=== PATIENT | female | born 1970 | race Caucasian/White ===

== ENCOUNTER 2021-08-25 09:19 | Inpatient (IN) ==
[2021-08-25] MEDS ORDERED: ALBUTEROL 2.5 MG/3 ML NEB RESP TX STA ×2 (09:41→12:21)
[2021-08-25] MEDS ORDERED: PANTOPRAZOLE 40 MG VIAL IV STA (09:41)
[2021-08-25] MEDS ORDERED: metroNIDAZOLE INJ 500 MG/100 ML PREMIX IV STA (09:42)
[2021-08-25] MEDS ORDERED: ONDANSETRON 4 MG/2 ML VIAL IV ONE (09:42)
[2021-08-25] MEDS ORDERED: methylPREDNISolone SOD SUC 125 MG/2 ML VIAL IV STA (09:45)
[2021-08-25 10:21] LABS: Basophils % 0.5 % (0.0-0.8); Eosinophils # 0.1 10*3/uL (0.0-0.87); Eosinophils % 0.9 % (0.00-10.9); Hematocrit 41.2 VOL% (35.7-47.0); Hemoglobin 12.9 GM/DL (12.0-16.0); Immature Granulocytes % 0.7 %; Immature Granulocytes Absolute 0.06 #; Lymphocytes # 2.1 10*3/uL (1.4-4.0); Lymphocytes % 23.7 % (21.3-54.2); Mean Corpuscular HGB Conc 31.3 GM/DL (32-36); Mean Corpuscular Volume 92.8 FL (87-102); Mean Platelet Volume 10.5 FL (9.6-12.0); Monocytes # 0.3 10*3/uL (0.11-0.8); Monocytes % 3.6 % (1.7-12.7); Neutrophils % 70.6 % (38.7-73.9); Platelet Count 177 T/CUMM (130-400); Red Blood Count 4.44 MC/CUMM (3.8-5.5); Red Cell Distribution Width 13.1 % (9.3-17.3); White Blood Count 8.7 T/CUMM (4-12)
[2021-08-25 10:37] LABS: Alanine Aminotransferase 53 U/L (13-56); Alkaline Phosphatase 103 U/L (45-117); Aspartate Amino Transferase 36 U/L (0-37); Bilirubin,Total < 0.39 MG/DL (0.20-1.00); Blood Urea Nitrogen 10 MG/DL (7-18); Calcium 8.3 MG/DL (8.5-10.1); Carbon Dioxide 30 MMOL/L (21-32); Chloride 105 MMOL/L (98-107); Estimated Glom Filtration Rate 140 ML/MIN; Glucose 166 MG/DL (74-106); Osmolality,Calculated 283.3 MOS/KG (273-304); Potassium 3.4 MMOL/L (3.5-5.1); Sodium 141 MMOL/L (136-145); Total Protein 7.7 G/DL (6.4-8.2)
[2021-08-25] MEDS ORDERED: LORazepam 2 MG/1 ML VIAL IV STA (12:22)
[2021-08-25 12:49] LABS: Arterial Base Excess iSTAT -1 MMOL/L (-2.5-2.5); Arterial Bicarbonate iSTAT 29.6 MMOL/L (20-26); Arterial O2 Saturation iSTAT 97 % (95-100); Arterial PCO2 iSTAT 77 MM HG (35-48); Arterial PO2 iSTAT 114 MM HG (80-95); Arterial Total CO2 iSTAT 32 MMO/L (23-27); Arterial pH iSTAT 7.192 (7.35-7.45)
[2021-08-25] MEDS ORDERED: ONDANSETRON 4 MG/2 ML VIAL IV PRN (12:58)
[2021-08-25] MEDS ORDERED: ALBUTEROL/IPRATROPIUM 3 ML NEB RESP TX PRN (12:58)
[2021-08-25] MEDS ORDERED: LACTATED RINGERS 1,000 ML IV SCH (13:00)
[2021-08-25] MEDS ORDERED: cefTRIAXone 1,000 MG VIAL IV SCH (13:30)
[2021-08-25] MEDS: ENOXAPARIN 40 MG/0.4 ML SYRINGE SUBCUT SCH (13:50)
[2021-08-25] MEDS: cefTRIAXone 1,000 MG in SODIUM CHLORIDE 0.9% 100 ML IV SCH (13:50)
[2021-08-25] MEDS: ALBUTEROL/IPRATROPIUM 3 ML NEB RESP TX SCH ×2 (13:52→19:25)
[2021-08-25] MEDS: CLINDAMYCIN INJ 600 MG/50 ML PREMIX IV SCH ×2 (14:04→21:11)
[2021-08-25] MEDS ORDERED: ALPRAZolam 0.5 MG TABLET PO PRN (14:33)
[2021-08-25] MEDS ORDERED: ALPRAZolam 0.5 MG TABLET PO ONE (14:33)
[2021-08-25 15:52] LABS: Arterial Base Excess iSTAT 0 MMOL/L (-2.5-2.5); Arterial Bicarbonate iSTAT 30.2 MMOL/L (20-26); Arterial O2 Saturation iSTAT 97 % (95-100); Arterial PCO2 iSTAT 75 MM HG (35-48); Arterial PO2 iSTAT 120 MM HG (80-95); Arterial Total CO2 iSTAT 32 MMO/L (23-27); Arterial pH iSTAT 7.214 (7.35-7.45)
[2021-08-25 17:58] LABS: Arterial Base Excess iSTAT 2 MMOL/L (-2.5-2.5); Arterial Bicarbonate iSTAT 30.2 MMOL/L (20-26); Arterial O2 Saturation iSTAT 97 % (95-100); Arterial PCO2 iSTAT 65 MM HG (35-48); Arterial PO2 iSTAT 111 MM HG (80-95); Arterial Total CO2 iSTAT 32 MMO/L (23-27); Arterial pH iSTAT 7.274 (7.35-7.45)
[2021-08-25] MEDS: LACTATED RINGERS 1,000 ML IV SCH (18:10)
[2021-08-25] MEDS: methylPREDNISolone SOD SUC 40 MG/1 ML VIAL IV SCH (18:28)
[2021-08-25] MEDS: ACETAMINOPHEN 325 MG TABLET PO PRN (18:33)
[2021-08-26] MEDS: ALBUTEROL/IPRATROPIUM 3 ML NEB RESP TX SCH ×4 (00:10→19:16)
[2021-08-26] MEDS ORDERED: ALPRAZolam 0.5 MG TABLET PO ONE (01:50)
[2021-08-26] MEDS: methylPREDNISolone SOD SUC 40 MG/1 ML VIAL IV SCH ×3 (02:39→18:50)
[2021-08-26 04:35] LABS: Basophils % 0.2 % (0.0-0.8); Hematocrit 37.7 VOL% (35.7-47.0); Hemoglobin 11.9 GM/DL (12.0-16.0); Immature Granulocytes % 0.3 %; Immature Granulocytes Absolute 0.05 #; Lymphocytes # 0.6 10*3/uL (1.4-4.0); Lymphocytes % 4.3 % (21.3-54.2); Mean Corpuscular HGB Conc 31.6 GM/DL (32-36); Mean Corpuscular Volume 91.5 FL (87-102); Mean Platelet Volume 11.8 FL (9.6-12.0); Monocytes # 0.5 10*3/uL (0.11-0.8); Monocytes % 3.1 % (1.7-12.7); Neutrophils % 92.1 % (38.7-73.9); Platelet Count 122 T/CUMM (130-400); Red Blood Count 4.12 MC/CUMM (3.8-5.5); White Blood Count 14.8 T/CUMM (4-12)
[2021-08-26 04:49] LABS: Band Neutrophils 2 % (0-10); Lymphocytes 6 % (20-55); Nucleated Red Blood Cells 1 (0-5); Platelet Estimate Normal; Total Cells Counted 100
[2021-08-26 05:13] LABS: Alanine Aminotransferase 45 U/L (13-56); Albumin 3.6 G/DL (3.4-5.0); Alkaline Phosphatase 69 U/L (45-117); Aspartate Amino Transferase 36 U/L (0-37); Bilirubin,Total < 0.39 MG/DL (0.20-1.00); Blood Urea Nitrogen 12 MG/DL (7-18); Calcium 8.5 MG/DL (8.5-10.1); Carbon Dioxide 25 MMOL/L (21-32); Chloride 105 MMOL/L (98-107); Estimated Glom Filtration Rate 141 ML/MIN; Glucose 137 MG/DL (74-106); Osmolality,Calculated 276.7 MOS/KG (273-304); Potassium 4.3 MMOL/L (3.5-5.1); Sodium 138 MMOL/L (136-145); Total Protein 7.4 G/DL (6.4-8.2)
[2021-08-26] MEDS: CLINDAMYCIN INJ 600 MG/50 ML PREMIX IV SCH ×3 (05:58→22:12)
[2021-08-26] MEDS ORDERED: MAGNESIUM SULF RIDER 4 GM/100 ML PREMIX IV ONE (07:52)
[2021-08-26] MEDS ORDERED: PANTOPRAZOLE 40 MG VIAL IV SCH (09:00)
[2021-08-26] MEDS: ALPRAZolam 0.5 MG TABLET PO PRN ×3 (09:56→18:50)
[2021-08-26] MEDS: ACETAMINOPHEN 325 MG TABLET PO PRN ×3 (09:56→23:50)
[2021-08-26] MEDS: ENOXAPARIN 40 MG/0.4 ML SYRINGE SUBCUT SCH (14:00)
[2021-08-26] MEDS: cefTRIAXone 1,000 MG in SODIUM CHLORIDE 0.9% 100 ML IV SCH (14:00)
[2021-08-26] MEDS: LACTATED RINGERS 1,000 ML IV SCH (16:28)
[2021-08-26] MEDS: VENLAFAXINE XR 75 MG CAPSULE PO SCH (18:50)
[2021-08-26 19:26] LABS: ABG Base Excess 5.1 MMOL/L (-2.5-2.5); ABG Oxygen Saturation 97.5 % (95-100); ABG PH 7.366 (7.35-7.45); ABG PO2 94.3 MM HG (80-95); ABG TCO2 28.5 MMOL/L (23-27)
[2021-08-26] MEDS ORDERED: PANTOPRAZOLE 40 MG TABLET PO SCH (21:00)
[2021-08-26] MEDS: PANTOPRAZOLE 40 MG TABLET PO SCH (22:00)
[2021-08-26] MEDS: SUCRALFATE 1 GM TABLET PO SCH (22:00)
[2021-08-27] MEDS: ALBUTEROL/IPRATROPIUM 3 ML NEB RESP TX SCH ×4 (00:28→19:04)
[2021-08-27 03:53] LABS: Basophils % 0.1 % (0.0-0.8); Hematocrit 38.9 VOL% (35.7-47.0); Hemoglobin 12.2 GM/DL (12.0-16.0); Immature Granulocytes % 1.1 %; Immature Granulocytes Absolute 0.14 #; Lymphocytes # 0.7 10*3/uL (1.4-4.0); Lymphocytes % 5.1 % (21.3-54.2); Mean Corpuscular HGB Conc 31.4 GM/DL (32-36); Mean Corpuscular Volume 91.3 FL (87-102); Mean Platelet Volume 11.2 FL (9.6-12.0); Monocytes # 0.5 10*3/uL (0.11-0.8); Monocytes % 3.8 % (1.7-12.7); Neutrophils % 89.9 % (38.7-73.9); Platelet Count 170 T/CUMM (130-400); Red Blood Count 4.26 MC/CUMM (3.8-5.5); Red Cell Distribution Width 13.1 % (9.3-17.3); White Blood Count 13.1 T/CUMM (4-12)
[2021-08-27 04:11] LABS: Calcium 9.1 MG/DL (8.5-10.1); Potassium 4.3 MMOL/L (3.5-5.1)
[2021-08-27 04:37] LABS: Band Neutrophils 4 % (0-10); Lymphocytes 6 % (20-55); Microcytosis 1+; Ovalocytes Slight; Total Cells Counted 100
[2021-08-27 04:38] LABS: Hypochromia Slight; Platelet Estimate Adequate
[2021-08-27] MEDS: methylPREDNISolone SOD SUC 40 MG/1 ML VIAL IV SCH ×2 (05:50→18:00)
[2021-08-27] MEDS: CLINDAMYCIN INJ 600 MG/50 ML PREMIX IV SCH ×3 (05:50→21:21)
[2021-08-27] MEDS: LEVOTHYROXINE 150 MCG TABLET PO SCH (06:00)
[2021-08-27] MEDS: SUCRALFATE 1 GM TABLET PO SCH ×4 (09:30→21:21)
[2021-08-27] MEDS: PANTOPRAZOLE 40 MG TABLET PO SCH ×2 (09:30→21:21)
[2021-08-27] MEDS: VENLAFAXINE XR 75 MG CAPSULE PO SCH (09:30)
[2021-08-27] MEDS: ENOXAPARIN 40 MG/0.4 ML SYRINGE SUBCUT SCH (13:30)
[2021-08-27] MEDS: cefTRIAXone 1,000 MG in SODIUM CHLORIDE 0.9% 100 ML IV SCH (15:14)
[2021-08-27] MEDS: LACTATED RINGERS 1,000 ML IV SCH (15:15)
[2021-08-27] MEDS: ACETAMINOPHEN 325 MG TABLET PO PRN (16:14)
[2021-08-27] MEDS: ALPRAZolam 0.5 MG TABLET PO PRN (19:00)
[2021-08-27] MEDS: ROSUVASTATIN 10 MG TABLET PO SCH (21:21)
[2021-08-28] MEDS: ALBUTEROL/IPRATROPIUM 3 ML NEB RESP TX SCH ×4 (00:05→18:59)
[2021-08-28 04:29] LABS: Basophils % 0.1 % (0.0-0.8); Hematocrit 38.9 VOL% (35.7-47.0); Immature Granulocytes % 1.3 %; Immature Granulocytes Absolute 0.16 #; Lymphocytes # 1.1 10*3/uL (1.4-4.0); Lymphocytes % 9.2 % (21.3-54.2); Mean Corpuscular HGB Conc 30.8 GM/DL (32-36); Mean Corpuscular Volume 92.6 FL (87-102); Mean Platelet Volume 10.6 FL (9.6-12.0); Monocytes # 0.5 10*3/uL (0.11-0.8); Monocytes % 4.4 % (1.7-12.7); Platelet Count 180 T/CUMM (130-400); Red Cell Distribution Width 13.2 % (9.3-17.3); White Blood Count 11.9 T/CUMM (4-12)
[2021-08-28 05:27] LABS: Calcium 8.9 MG/DL (8.5-10.1); Osmolality,Calculated 283.3 MOS/KG (273-304)
[2021-08-28] MEDS: CLINDAMYCIN INJ 600 MG/50 ML PREMIX IV SCH (06:06)
[2021-08-28] MEDS: LACTATED RINGERS 1,000 ML IV SCH (06:06)
[2021-08-28] MEDS: LEVOTHYROXINE 150 MCG TABLET PO SCH (06:07)
[2021-08-28] MEDS: methylPREDNISolone SOD SUC 40 MG/1 ML VIAL IV SCH ×2 (06:07→20:22)
[2021-08-28] MEDS: VENLAFAXINE XR 75 MG CAPSULE PO SCH (09:15)
[2021-08-28] MEDS: PANTOPRAZOLE 40 MG TABLET PO SCH ×2 (09:15→20:20)
[2021-08-28] MEDS: SUCRALFATE 1 GM TABLET PO SCH ×2 (09:16→13:00)
[2021-08-28] MEDS: ACETAMINOPHEN 325 MG TABLET PO PRN (09:25)
[2021-08-28] MEDS: ENOXAPARIN 40 MG/0.4 ML SYRINGE SUBCUT SCH (14:03)
[2021-08-28] MEDS: CLINDAMYCIN 300 MG CAPSULE PO SCH ×2 (15:47→20:20)
[2021-08-28] MEDS: METOCLOPRAMIDE 10 MG/10 ML UDCUP PO SCH ×2 (15:49→20:20)
[2021-08-28] MEDS: ROSUVASTATIN 10 MG TABLET PO SCH (20:20)
[2021-08-29] MEDS: ALBUTEROL/IPRATROPIUM 3 ML NEB RESP TX SCH ×4 (00:12→19:30)
[2021-08-29 04:27] LABS: Basophils % 0.2 % (0.0-0.8); Hematocrit 37.6 VOL% (35.7-47.0); Immature Granulocytes % 0.7 %; Immature Granulocytes Absolute 0.08 #; Lymphocytes # 1.6 10*3/uL (1.4-4.0); Mean Corpuscular HGB Conc 31.9 GM/DL (32-36); Mean Platelet Volume 10.5 FL (9.6-12.0); Monocytes # 0.4 10*3/uL (0.11-0.8); Neutrophils % 80.1 % (38.7-73.9); Platelet Count 186 T/CUMM (130-400); Red Blood Count 4.13 MC/CUMM (3.8-5.5); Red Cell Distribution Width 13.1 % (9.3-17.3); White Blood Count 10.8 T/CUMM (4-12)
[2021-08-29 04:42] LABS: Calcium 8.7 MG/DL (8.5-10.1); Osmolality,Calculated 284.3 MOS/KG (273-304)
[2021-08-29] MEDS: LEVOTHYROXINE 150 MCG TABLET PO SCH (06:17)
[2021-08-29] MEDS: ACETAMINOPHEN 325 MG TABLET PO PRN (07:42)
[2021-08-29] MEDS: METOCLOPRAMIDE 10 MG/10 ML UDCUP PO SCH ×4 (07:42→20:48)
[2021-08-29] MEDS: methylPREDNISolone SOD SUC 40 MG/1 ML VIAL IV SCH ×2 (07:43→20:43)
[2021-08-29] MEDS: PANTOPRAZOLE 40 MG TABLET PO SCH ×2 (08:21→20:41)
[2021-08-29] MEDS: VENLAFAXINE XR 75 MG CAPSULE PO SCH (08:21)
[2021-08-29] MEDS: CLINDAMYCIN 300 MG CAPSULE PO SCH ×3 (08:21→20:41)
[2021-08-29] MEDS: ENOXAPARIN 40 MG/0.4 ML SYRINGE SUBCUT SCH (13:54)
[2021-08-29] MEDS: ROSUVASTATIN 10 MG TABLET PO SCH (20:42)
[2021-08-30] MEDS: ALBUTEROL/IPRATROPIUM 3 ML NEB RESP TX SCH ×2 (00:35→07:51)
[2021-08-30 04:17] LABS: Calcium 9.2 MG/DL (8.5-10.1); Osmolality,Calculated 285.3 MOS/KG (273-304); Potassium 3.9 MMOL/L (3.5-5.1)
[2021-08-30] MEDS: LEVOTHYROXINE 150 MCG TABLET PO SCH (06:37)
[2021-08-30] MEDS: PANTOPRAZOLE 40 MG TABLET PO SCH (08:45)
[2021-08-30] MEDS: CLINDAMYCIN 300 MG CAPSULE PO SCH (08:45)
[2021-08-30] MEDS: METOCLOPRAMIDE 10 MG/10 ML UDCUP PO SCH ×2 (08:45→11:40)
[2021-08-30] MEDS: VENLAFAXINE XR 75 MG CAPSULE PO SCH (08:45)
[2021-08-30] MEDS: methylPREDNISolone SOD SUC 40 MG/1 ML VIAL IV SCH (08:50)
[2021-08-30 12:28] VITALS: BP 150/95
== END 2021-08-30 12:50 | disposition home or self-care (01) | DRG 205 ==
LOC: EDUNIT# → EDBD → N.ED 09:19 → N.EDINP 12:58 → SUATTDRO 12:58 → N.ICU 13:18
PROVIDERS: ADMIT Internal Medicine; ATTEND Family Medicine